=== PATIENT | male | born 1945 | race Caucasian/White ===

== ENCOUNTER → 2017-01-01 | Outpatient (CLI) | payer OTHER, BC ==
[~2017-01-01] MED LIST: ASPEC325 PO; ATV5 PO; CRDCD180 PO; FLNIN NAE; FURO-85 PO; GLCSUNK PO; LISI10TA PO; LRT5 PO; MULT-506 PO; OMEG10007 PO; OXYSR20 PO; PARO1TAB29 PO; coumadin
--- NOTE | 2017-01-01 10:05 | DIAGNOSTIC IMAGING REPORT ---
PET/CT SKULL-THIGH CLINICAL HISTORY: Follicular diffuse lymphoma COMPARISON STUDY: CT scan performed December 2010 FINDINGS: The patient was injected with 13.8 mCi of F 18 labeled FDG. Following the standard induction phase, PET/CT scanning is performed from the skull base the upper thigh region. There are postsurgical changes of a left occipital craniotomy. Within the neck, there are mildly enlarged left supraclavicular and retroclavicular lymph nodes measuring up to 13 mm in diameter. These are minimally FDG avid with SUV maximum of 3.2. Within the chest, there is no pathologic axillary or mediastinal lymphadenopathy. There is no pathologic axillary lymphadenopathy. There are no FDG avid parenchymal masses. There are no pleural effusions. Within the abdomen and pelvis, the spleen is normal in size. There are no FDG avid hepatic lesions. There are enlarged aortocaval lymph nodes. These are FDG avid with SUV maximum of 7. Adenopathy extends to the aortic bifurcation and along the iliac chains. There is bulky left iliac/pelvic sidewall adenopathy measuring 12 cm in diameter. This is intensely FDG avid with SUV maximum of 12. There is bulky left inguinal lymphadenopathy measuring approximately 8 cm. This is FDG avid with SUV maximum of 10. There is a 36 mm left renal cyst. There are no FDG avid skeletal lesions. IMPRESSION: 1. Bulky left inguinal and left pelvic sidewall adenopathy which is FDG avid. 2. Aortocaval and bilateral iliac chain FDG avid lymphadenopathy 3. Mildly enlarged mildly FDG avid left supraclavicular and retroclavicular lymph nodes. Electronically signed by: Alo Euceda M.D. 01/01/2017 10:03 AM Dictated Date/Time: 01/01/2017 9:55 AM
== END | disposition home or self-care (01) ==
LOC: C.PET 07:09
PROVIDERS: ATTEND Internal Medicine Hematology & Oncology
DX: C83.9 Non-follicular (diffuse) lymphoma, unspecified (principal)

== ENCOUNTER → 2017-06-11 | Outpatient (CLI) | payer OTHER, BC ==
[~2017-06-11] MED LIST changes: -ASPEC325 PO; -CRDCD180 PO; -GLCSUNK PO; -LISI10TA PO; -LRT5 PO; -MULT-506 PO; -OMEG10007 PO; -OXYSR20 PO
--- NOTE | 2017-06-11 12:10 | DIAGNOSTIC IMAGING REPORT ---
WHOLE BODY PET/CT CLINICAL HISTORY: Lymphoma. COMPARISON STUDY: PET/CT dated 01/01/2017. Pelvic CT dated 11/25/2016. TECHNIQUE: One hour following the IV administration of 13.21 mCi of F-18 FDG, PET/CT examination was performed from the orbital meatal line through the feet. Noncontrast CT is performed for the purposes of anatomic correlation and attenuation correction. Note that this does not reflect a diagnostic CT examination. Images were reviewed on a separate [email or web address] independent workstation. Fused images were obtained. Standard uptake values reported are maximum values within the region of interest expressed in gm/mL. FINDINGS: PET FINDINGS: Head and neck: There is expected physiologic activity within the visualized brain parenchyma at the skull base and the salivary glands. There are no pathologically enlarged or FDG avid cervical lymph nodes. Thorax: Evaluation of the thorax demonstrates expected physiologic myocardial activity. There are no pathologically enlarged or FDG avid mediastinal, hilar, or axillary lymph nodes. Abdomen and pelvis: There is expected activity within the liver, spleen, kidneys, renal collecting system, and bladder. Low-level bowel activity is likely within physical limits. The spleen measures 11.5 cm in length. There has been near-complete resolution of bulky retroperitoneal, iliac chain, and inguinal lymphadenopathy as compared to 01/01/2017. No pathologically enlarged or FDG avid retroperitoneal lymph nodes are identified. A residual left external iliac chain node on image #212 measures 2.7 x 2.4 cm. This shows mild FDG activity with a maximum SUV of 4.5. The largest residual left inguinal lymph node is seen on image #240 and measures 2.9 x 2.3 cm. This shows only mild FDG activity of maximum SUV of 1.6. Lower extremities: No FDG avid lesions are identified in the lower extremity soft tissues. Unenhanced CT images: A small focus of left cerebellar encephalomalacia is suggested. Findings suggest previous left occipital craniectomy. The visualized paranasal sinuses are clear. The mastoid air cells are well pneumatized. The salivary and thyroid glands are within normal limits. A left subclavian central venous infusion port is in place. Calcified tonsilliths are incidentally noted. There is mild aneurysmal dilatation of the ascending thoracic aorta which measures up to 4.3 cm diameter. The remainder of the thoracic aorta is normal in caliber. The heart is mildly enlarged and without pericardial effusion. A small hiatal hernia is noted. There is no airspace consolidation or pleural effusion. Bibasilar atelectasis is observed. No concerning pulmonary lesion is seen. The unenhanced liver, spleen, pancreas, and adrenal glands are grossly unremarkable. The gallbladder is surgically absent. The kidneys are atrophic and without hydronephrosis. Renal cysts measure up to 4.1 cm. A punctate nonobstructing calculus is noted in the right kidney. The abdominal aorta is normal in caliber noting mild atherosclerotic calcification. No bowel obstruction is seen. There is mild colonic fecal retention. A normal appendix is identified. There is no intraperitoneal free air or abdominal ascites. The bladder is decompressed and not evaluated. The prostate and seminal vesicles are normal as visualized. The skeletal structures are osteopenic. No lytic or blastic bone lesions are identified. Mild degenerative change is present throughout the spine. There are bilateral knee arthroplasties. Mild pretibial soft tissue edema is noted. The soft tissues of the lower extremities are otherwise normal as imaged. Atherosclerotic calcification is present in the lower extremity arteries. IMPRESSION: 1. Positive response to treatment with near-complete resolution of bulky retroperitoneal, iliac chain, and left inguinal adenopathy as compared to 01/01/2017. 2. There are mildly enlarged residual left external iliac chain and inguinal lymph nodes. These show only mild FDG activity on today's examination. 3. No additional foci of FDG avid lymphadenopathy are identified on today's examination. 4. The spleen is normal in size. 5. The lungs are clear. 6. There is mild aneurysmal dilatation of the ascending thoracic aorta which measures up to 4.3 cm in diameter. 7. Cardiomegaly. 8. Additional findings as above. Electronically signed by: Sadiq Redmond M.D. 06/11/2017 12:09 PM Dictated Date/Time: 06/11/2017 11:50 AM
== END | disposition home or self-care (01) ==
LOC: C.PET 09:20
PROVIDERS: ATTEND Internal Medicine Hematology & Oncology
DX: C83.35 Diffuse large B-cell lymphoma, lymph nodes of inguinal region and lower limb (principal)